=== PATIENT | male | born 1990 | race Caucasian/White ===

== ENCOUNTER 2024-02-09 15:15 | Outpatient (CLI) | payer MEDICAID ==
--- NOTE | 2024-02-09 18:53 | XRAY Report ---
PROCEDURE: Foot 1-2V LT INDICATIONS: FOOT PAIN, LEFT TECHNIQUE: 2 views of the foot were acquired. COMPARISON: None. FINDINGS: Bones: Probable nondisplaced fifth proximal phalanx fracture. Alignment remains normal. There is a mi nimally expansile, partially seen rounded lucency in the proximal phalanx diaphysis through which the fracture plane is seen.. Soft tissues: Mild lateral soft tissue swelling the fifth metatarsal phalangeal joint. No tibiotalar joint effusion. Achilles tendon appears normal. IMPRESSION: Nondisplaced fifth proximal phalanx fracture. Round intraosseous lucency may be a bone cyst or enchondroma. This lesion likely contributed to prope nsity for fracture. Reviewed by: Fina Morocho MD on 02/09/2024 6:52 PM PDT Approved by: Fina Morocho MD on 02/09/2024 6:52 PM PDT Station ID: [id number]
== END 2024-02-09 15:30 | disposition home or self-care (01) ==
LOC: DI.N 15:15
PROVIDERS: ATTEND Physician Assistant Medical
DX: S92.515A Nondisplaced fracture of proximal phalanx of left lesser toe(s), initial encounter for closed fracture (principal); R93.6 Abnormal findings on diagnostic imaging of limbs